=== PATIENT | male | born 1935 | race Caucasian/White ===

== ENCOUNTER 2022-10-11 06:20 | Day surgery (SDC) | payer MEDICARE, OTHER, SELFPAY ==
[2022-10-08 10:44] VITALS: BMI 30.1
[2022-10-11] VITALS (14 sets, daily range): BP systolic 105–157; BP diastolic 55–92; PULSE 57–92; RESP 10–18; TEMP 35.6–36.6; O2SAT 93–98; BMI 28.8; BMI 30.8
[2022-10-11] MEDS: PREGABALIN 75 MG CAPSULE PO (07:30)
[2022-10-11] MEDS: ACETAMINOPHEN 325 MG TABLET 975 MG PO (07:32)
[2022-10-11] MEDS: LACTATED RINGERS 1,000 ML 42 ML IV ×2 (07:33→09:00)
--- NOTE | 2022-10-11 07:37 | PM.PREOP ---
Pre-operative Note COVID-19 COVID-19 status: Negative Interval Note History & Physical reviewed/Exam performed by Physician: Yes Changes to H&P: No
--- NOTE | 2022-10-11 07:38 | P.OP_ITS ---
Operative Date/Time/Diagnoses Date of procedure: 10/11/22 Time of procedure: 08:00 Pre-op diagnosis: left hip OA Post-op diagnosis: same Procedure & Clinicians Procedure: left total hip posterior approach Same procedure as scheduled: Yes Indications: The patient has had progressively worsening left hip pain with radiographic changes consistent with arthritis. Non-operative management has failed and the patient has requested total hip replacement. The risks, benefits and alternatives to surgery were discussed with the patient prior to proceeding. Risks discussed included, but were not limited to, failure to relieve pain, leg length discrepancy, dislocation, stiffness, infection, nerve damage, deep venous thrombosis, pulmonary embolism, stroke, coma, heart attack, permanent paralysis and , as well as the potential need for eventual revision of the prosthetic. Surgeon: Charo Villatoro [employer] Supervisor: Keren Mendoza Anesthesia Type: General Operative Notes Findings: Left hip osteoarthritis, significant preoperative hip flexion and abduction contracture, soft bone Closure Type: primary Specimen(s): none sent Prosthetic devices, grafts, tissues, transplants, or devices: Villatoro and nephew Synergy standard offset size 16, R3 58 cup, neutral poly liner, one 6.5mm screw, 36 x -3 femoral head Applied: catheter Estimated Blood Loss (mL): 250 Blood products transfused: none Procedure in detail: The patient was seen in the pre-operative area, where the patient identified the left hip as the operative site and this was marked with my initials. The patient received pre-operative antibiotics and was taken to the operating room and placed on the operative table in the right lateral decubitus position after satisfactory anesthesia. A electric meter installer out was performed. The left leg was prepared from the ankle to the iliac crest with ChloroPrep in the usual fashion and draped through sterile drapes. The hip was approached through an approximately 20 cm incision centered over the greater trochanter and curving gently posteriorly as it went proximally. This was carried sharply to the fascia jamison, which was divided and retracted with a self retaining retractor. The trochanteric bursa was excised with care being taken to avoid the sciatic nerve, which was identified and protected throughout the case. The short external rotators were incised and the capsulomuscular flap was raised and tagged for later repair. The hip was dislocated, and a femoral neck osteotomy performed approximately 15 mm above the lesser trochanter. Retractors were placed around the femur. The canal was opened with a box cutting osteotome, followed by a T handled reamer and a lateralizing reamer. The canal was reamed with hand reamers, followed by sequential broaching until there was good stability of the broach in the femur. Retractors were placed to expose the acetabulum. The labrum and central soft tissues were removed. Reaming was performed initially going up in 2 mm increments, then 1 mm increments until good bite was obtained with an odd sized reamer. The cup 1 mm larger than the last reamer was then inserted using the appropriate anteversion guides. A trial neutral liner was placed. The broach was placed in the canal. A trial head and neck were then placed and the hip relocated and checked for leg length and stability. An intraoperative film confirmed the component position and no evidence of fracture. The patient was stable in the position of sleep, of squatting, and could be put through a range of motion with 45 degrees internal rotation without dislocation. At 90 degrees flexion, internal rotation to 70? was possible before dislocation. This was felt to be satisfactory and the appropriate components were opened, and the trials were removed. The cup was further stabilized with a single screw. The acetabular liner was impacted into position. The final stem was then impacted into the prepared femoral canal. A brief Betadine soak was performed while trialing with head options. The hip was meticulously irrigated with normal saline. Finally the femoral head was impacted onto the stem. The acetabulum was cleared of all material and the hip relocated one final time. The capsulomuscular flap was then repaired to the greater trochanter though an awl hole using the tag sutures. The short external rotators were repaired with a nonabsorbable suture. The fascia jamison was closed with Vicryl. The subcutaneous layer was closed with barbed sutures and surgical glue. An Aquacel Ag dressing was applied and the patient was taken to recovery having tolerated the procedure well. Complications: none Post-operative Condition: stable Disposition: Acute Care Plan for aftercare: The patient will be maintained on a standard total hip replacement protocol with weight bearing as tolerated and posterior hip precautions. The patient will receive Aspirin and sequential compression devices for DVT prophylaxis. The patient will be discharged home when safe for the home environment.
--- NOTE | 2022-10-11 08:00 | DI.RAD.S_ITS ---
PROCEDURE: XR PELVIS 1-2V INDICATIONS: L DENNIS TECHNIQUE: Intra-operative view of the pelvis and hip acquired. COMPARISON: None. FINDINGS: Bones: Intraoperative devices prior to placement of arthroplasty prostheses are in expected positions. No fractures or suspicious bony lesions. Soft tissues: Overlying surgical retractors are present, along with other intraoperative changes. IMPRESSION: Intraprocedural radiography was provided for guidance and anatomical localization. Please see the procedure report for further details. Dictated by: Farhad Green M.D. on 10/11/2022 at 16:52 Approved by: Farhad Green M.D. on 10/11/2022 at 16:54
[2022-10-11] MEDS: CLINDAMYCIN 900 MG/50 ML PIGGYBACK 50 MG IV (08:01)
[2022-10-11] MEDS: TRANEXAMIC ACID 1,000 MG VIAL 1000 MG INJ ×2 (08:15→10:00)
--- NOTE | 2022-10-11 08:47 | SUR.OPER ---
Lateral on bed, hip inspection manager system used to secure patient. head on pillow, gel axillary roll in place, bottom leg bent with gel pad under knee to foot and towel cover with tape to hold in place, upper leg straight. Upper arm supported by pillows and secured over bottom arm to padded arm board. Lower arm secured with strap, with gel pad under wrist to support.
[2022-10-11 08:54] LABS: COVID19 -Nasal RAPID Negative (Negative)
[2022-10-11] MEDS: BUPIVACAINE 0.5% W/ EPI (PF) 30 ML VIAL INJ (09:03)
[2022-10-11] MEDS: BUPIVACAINE LIPOSOME 266 MG/20 ML VIAL INJ (09:04)
--- NOTE | 2022-10-11 09:31 | SUR.OPER ---
Lateral on a bed secured by hip pediatric physiatrist system, gel axillary roll in place, bottom leg bent with gel pad under knee to foot and taped into place, upper leg straight and supported with pillows. Upper arm supported by pillows and lower arm supported by gel roll and secured over bottom arm to padded arm board. .
[2022-10-11] MEDS: SODIUM CHLORIDE IRRIG SOLUTION 250 ML, EPINEPHrine 1 MG IRR (09:48)
--- NOTE | 2022-10-11 10:30 | DI.RAD.S_ITS ---
PROCEDURE: XR HIP W PEL IF DONE LT 2V INDICATIONS: LEFT TOTAL HIP TECHNIQUE: AP pelvis and lateral view of the left hip acquired. COMPARISON: None. FINDINGS: Bones: Patient is status post left hip arthroplasty, with hardware components in expected positions. The hip joint appears congruent. The visualized bony structures appear intact. Soft tissues: Overlying postoperative changes are noted. No suspicious soft tissue densities. IMPRESSION: Expected appearance of left hip arthroplasty. Dictated by: Abi Phillips M.D. on 10/11/2022 at 15:35 Approved by: Abi Phillips M.D. on 10/11/2022 at 15:35
--- NOTE | 2022-10-11 10:48 | SUR.PHASEI ---
Report calledd, to 2086 with all belongings.
[2022-10-11] MEDS: LACTATED RINGERS 1,000 ML 125 ML IV ×2 (12:24→21:37)
[2022-10-11] MEDS: VANCOMYCIN 1,000 MG/200 ML PIGGYBACK 200 MG IV (15:46)
[2022-10-11] MEDS: OXYCODONE IR 10 MG TABLET PO ×2 (15:55→19:32)
--- NOTE | 2022-10-11 16:07 | PT.IIE ---
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 BCC (basal cell carcinoma) BPH (benign prostatic hyperplasia) CKD (chronic kidney disease) Degenerative lumbar spinal stenosis Eczema Esophageal dysmotility Essential tremor History of blood transfusion History of herpes zoster HLD (hyperlipidemia) HTN (hypertension) Idiopathic peripheral neuropathy 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 SCC (squamous cell carcinoma) Subclinical hypothyroidism Physical Therapy Inpatient Evaluation/Re-Eval M1 PT/OT-IP Prior Functional Status Start: 10/11/22 17:12 Freq: NEEDED Status: Active Protocol: Document 10/11/22 16:07 AB (Rec: 10/11/22 17:25 AB [id number]) Medical Review Prior Functional Status Medical History Reviewed Yes Communication able to make needs known Mobility and Gait pt stated that he is modified independent with all mobilities and ambulation using FWW Social History Household Members none Living Arrangements House Number of Floors (Floors) Two Floors Number of Stairs To Enter/Railing? pt stays on main level of the house has 3 steps R rail ascending and has L rail on the last step going into the house Home Environment Standard Height Toilet,High Toilet,Tub/Shower Home Equipment Front Wheel Walker,Tub Transfer Bench,Hand Held Shower,Grab Bars Near Toilet, Grab Bars In Shower Additional Social History Comment daughter stated that plan is pt to go to rehab after surgery pt has an adjustable bed M2 PT-IP Current Condition Start: 10/11/22 17:12 Freq: NEEDED Status: Active Protocol: Document 10/11/22 16:07 AB (Rec: 10/11/22 17:25 AB [id number]) Physical Therapy Current Condition Current Condition Evaluation Date 10/11/22 Treatment Diagnosis s/p L DENNIS posterior approach; difficulty in walking Onset Date 10/11/22 M3 PT-IP Subjective Start: 10/11/22 17:12 Freq: NEEDED Status: Active Protocol: Document 10/11/22 16:07 AB (Rec: 10/11/22 17:25 AB [id number]) Subjective Physical Therapy Visit Type Type Initial Evaluation Visit Start Time 16:07 Visit Stop Time 17:05 Total Visit Minutes 58 Number of LEAD PONY RIDER Visits 0 Physical Therapy Visit Comments Patient Comments agreeable to do PT Therapy Pain Assessment Pain When Pain Assessed At Rest Pain Present Pain Present Pain Reported Location Left Hip Intensity 2 Scale Used >2 with mobility Pain Management Techniques Distraction,Modification of Treatment,Re-positioning, Timing of Activity with Medications M4 PT-IP Mobility and Gait Start: 10/11/22 17:12 Freq: NEEDED Status: Active Protocol: Document 10/11/22 16:07 AB (Rec: 10/11/22 17:25 AB [id number]) PT-Bed Mobility Assessment Supine to Sit Supine to Sit Maximum Assistance,1 Person Assistance,2 Person Assistance ,Head of Bed Elevated,Bedrails Sit to Supine Sit to Supine 2 Person Assistance,Head of Bed Elevated,Bedrails Scooting Scooting to Edge of Bed Maximum Assistance PT-Transfer Assessment Sit to and From Stand Sit to and from Stand Maximum Assistance,2 Person Assistance,Use of Upper Extremities Equipment Transfer Assistive Device Gait Belt,Front Wheeled Walker Orthotic/Prosthetic Devices or Brace: No Comments Mobility Comments educated pt regarding posterior hip precautions. pt requires cues to recall. pt completed supine to sit max A x 1-2 with HOB elevated. able to sit on EOB min A. completed sit to stand max a x 2 and max cues. stooped posture and increase L knee flexion in standing. ambulated ~ 2 ft forward/ backwards using FWW mod A and sat back on EOB. c/o increase hip pain. completed sit to supine max A x 2 and max cues. positioned pt in bed. call light and table placed within reach. Gait Assessment Gait Gait Assistance Required: Moderate Assistance,1 Person Assist Distance (Feet) 4 Able to Maintain Weight Bearing Status Yes During Gait Assistive Devices Assistive Device Gait Belt,Front Wheeled Walker Orthotic/Prosthetic Devices or Brace: No Gait Deviations General Gait Pattern Decreased Stride Length, Decreased Feet Clearance, Flexed Trunk,Step-to Gait Factors Limiting Gait Function Factors Limiting Gait Function Decreased Activity Tolerance, Decreased Strength,Difficulty Following Directions,Limited Range of Motion,Pain,Poor Balance,Poor Safety Awareness PT-Balance Assessment Sitting Balance and Reactions Static Sitting Balance Ability Good Dynamic Sitting Balance Ability Fair Standing Balance and Reactions Static Standing Balance Ability Poor Dynamic Standing Balance Ability Poor Device Used FWW M5 PT-IP Objective Assessments Start: 10/11/22 17:12 Freq: NEEDED Status: Active Protocol: Document 10/11/22 16:07 AB (Rec: 10/11/22 17:25 AB [id number]) Orientation Orientation/Cognition Level of Alertness Alert Orientation Name,Place,Situation Safety Awareness Decreased Safety Awareness Memory Description Short Term Impaired,Nursing Home Impaired Gross Range of Motion Lower Extremity ROM Impairments L knee flexion contracture Strength Lower Extremity Strength Assessment Left Impaired Hip 3+/5 Knee 4-/5 Muscle Tone Muscle Tone WNL Yes M6 PT-IP Treatment Start: 10/11/22 17:12 Freq: NEEDED Status: Active Protocol: Document 10/11/22 16:07 AB (Rec: 10/11/22 17:25 AB [email or web address]) Physical Therapy Treatment Education Education Provided Precautions,Weight Bearing Status,Post-Op Packet,Safety M7 PT-IP Assessment and Plan Start: 10/11/22 17:12 Freq: NEEDED Status: Active Protocol: Document 10/11/22 16:07 AB (Rec: 10/11/22 17:25 AB [email or web address]) PT Summary Assessment and Plan Potential Rehabilitation Potential Fair Status of Condition at Evaluation Evolving Summary Impairments Pain,ROM,Strength,Balance, Coordination,Sensation,Tone, Cognition,Bed Mobility, Transfers,Gait,Activity Tolerance Assessment Summary pt requiring max A x 2 for bed mobility and sit to stand and mod A for ambulation using FWW. pt lives alone and will not have any assistance at home. pt will benefit from SNF rehab to improve overall strength and function. Goals Bed Mobility Goal Minimal Assistance Transfer Goal Minimal Assistance,Front Wheeled Walker Gait Goal Minimal Assistance,Front Wheel Walker Gait Distance 50 Other Goals improve bed mobility, transfers, ambulation using FWW SBA ~ 100 ft up/down 3 steps R rail CGA Days to Meet Goals 10 Frequency of Treatment Frequency Of Treatment Twice a Day Treatment Plan Physical Therapy Treatment Plan Bed Mobility Training,Transfer Training,Gait Training, Therapeutic Exercise,Balance Retraining,Post Op Education, Discharge Planning,Hot or Cold Pack,Neuromuscular Re-ed, Coordination Retraining,Manual Therapy Precautions Posterior Hip Precautions No Hip Flexion > 90 degrees,No Hip Internal Rotation,No Hip Adduction Weight Bearing Status Weight Bearing Status Weight Bear as Tolerated Allowed Weight Bearing Amount (enter % LLE WBAT or #) (%) Recommendations To Nursing Amount of Assist Needed 2 Person Assist Discharge Recommendations PT Discharge Recommendations SNF Rehab Transportation Needs at Discharge Wheelchair/Cabulance
[2022-10-11] MEDS: ACETAMINOPHEN 325 MG TABLET 650 MG PO (17:39)
[2022-10-11] MEDS: ASPIRIN EC 81 MG TABLET PO (21:56)
[2022-10-11] MEDS: METOPROLOL IR 50 MG TABLET PO (21:57)
[2022-10-11] MEDS: DOCUSATE 100 MG CAPSULE PO (21:57)
[2022-10-11] MEDS: TERAZOSIN 1 MG CAPSULE 4 MG PO (21:57)
[2022-10-12 01:10] VITALS: BP 109/51; PULSE 69; RESP 19; TEMP 36.2; O2SAT 92
[2022-10-12] MEDS: OXYCODONE IR 10 MG TABLET PO ×2 (01:18→09:40)
[2022-10-12] MEDS: ACETAMINOPHEN 325 MG TABLET 650 MG PO ×2 (01:19→05:37)
[2022-10-12 05:25] VITALS: BP 103/50; PULSE 69; RESP 16; TEMP 36.3; O2SAT 91
[2022-10-12] MEDS: OXYCODONE IR 5 MG TABLET PO (05:37)
[2022-10-12 06:44] LABS: Hematocrit 28.1 % (41-53); Hemoglobin 9.6 g/dL (13.5-17.5)
[2022-10-12] MEDS: DOCUSATE 100 MG CAPSULE PO (09:40)
[2022-10-12] MEDS: ASPIRIN EC 81 MG TABLET PO (09:40)
[2022-10-12 09:42] VITALS: BP 113/62; PULSE 69; RESP 16; TEMP 36.6; O2SAT 92
[2022-10-12] MEDS: METOPROLOL IR 50 MG TABLET PO (09:48)
[2022-10-12] MEDS: TAMSULOSIN 0.4 MG CAPSULE PO (09:48)
--- NOTE | 2022-10-12 10:34 | PM.DS.1 ---
History of Present Illness History of Present Illness Date Patient Seen: 10/12/22 Chief complaint: LT DENNIS Narrative: Patient is laying in bed comfortably this morning.He states his pain is well controlled with oxycodone. Patient notes that physical therapy did not go as well as he hoped. He and his daughter have decided that it is most appropriate for him to be discharged to group home facility. Looking forward to discharging to SNF today. Discharge Providers Provider Discharge Date: 10/12/22 Consults: 10/05/22 12:01 Consult to Anesthesiology Routine Comment: Consulting Provider: Anesthesiologist Reason for consultation: Surgeon requested re: Multiple medical issues 10/11/22 06:39 Consult to Anesthesiology Routine Comment: Consulting Provider: Anesthesiologist Reason for consultation: Regional block for post operative pain control 10/11/22 11:19 Consult to Discharge Planning Routine Comment: Consult to Physical Therapy Evaluate & Treat Comment: Physician Instructions: post op DENNIS protocol Discharge provider: Guillermina Trujillo PA-C Exam Vital Signs (past 8 hours): - 10/12/22 05:25 Temperature 97.4 F L Pulse Rate 69 Respiratory Rate 16 Blood Pressure 103/50 L Pulse Oximetry 91 Oxygen Flow Rate 0 Oxygen Delivery Method Room Air Oxygen Flow Rate 0 Narrative Exam Narrative: Right, alert, and oriented. Intraoperative dressing clean, dry, and intact. Strength and sensation intact bilateral lower extremities. Bilateral calves soft, compressible, nontender with no palpable cords or masses. 2+ pitting edema bilaterally, longstanding. 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 SCC (squamous cell carcinoma) Subclinical hypothyroidism Surgical History History of abdominal aortic aneurysm repair Hx of aortic aneurysm repair (~2019) Hx of bilateral cataract extraction Hx of hemorrhoidectomy Hx of tonsillectomy Hx of total adrenalectomy Social History household members: none Smoking Status: Never smoker alcohol intake: never Discharge Assessment & Plan Assessment and Plan Assessment: Patient is progressing as expected after left total hip arthroplasty Plan of Treatment: Discharge to group home facility today after cleared by physical therapy Discharge Plan Discharge Plan Patient Disposition: SNF Transfer to: [facility] certify the postop hospital group home care is medically necessary on a continuing basis for any conditions for which he/ she received care during this hospitalization.: Yes The receiving facility has agreed to accept transfer and provide medical treatment.: Yes Discharge orders & Medications Discharge Orders: Discharge (Order); Ordered 10/12/22 Ordered By: Guillermina Trujillo Prescriptions: New oxycodone 5 mg Tablet 5 mg PO Q4HR Qty: 40 0RF No Action acetaminophen 500 mg Tablet 1,000 mg PO TID terazosin 2 mg Capsule 4 mg PO BEDTIME tamsulosin 0.4 mg Capsule 0.4 mg PO DAILY metoprolol tartrate 50 mg Tablet 50 mg PO BID rosuvastatin 10 mg Tablet 10 mg PO DAILY trospium 20 mg Tablet 20 mg PO BID Rx Instructions: administer on an empty stomach aspirin 81 mg Capsule 81 mg PO DAILY Follow up/Referrals: Charo Villatoro MD [Physician] - As previously scheduled Diet/Activity/Treatments Diet: Diet as Tolerated Activity: Up and walking with physical therapy as tolerated Skin/Wound/Dressing Care Report to your healthcare provider any signs of infection, such as:: chills, fever, night sweats, increased pain, unusual drainage and unusual redness Dressing: Keep dressing clean, dry, and intact until 2 week follow up with orhtopedics. If it gets wet, change dressing at SNF or call our office for nurse visit to change dressing. [facility] Services Reason for rehabilitation: Post-operative therapy Rehab type: Physical therapy Restrictions to mobility: posterior hip precautions Visit Report/Discharge Packet Instructions: DI for Hip Replacement Stand Alone Forms: Surgery Discharge Discharge Data Attending Provider: Charo Villatoro Quality VTE Deep Vein Thrombosis/Pulmonary Embolism Present on Admission: No
--- NOTE | 2022-10-12 12:12 | PC.NURSE ---
Day shift: Per conversation with DAVID Trujillo this AM it is OK for Jhaveri to stay in place at this time. Due to Pt's mobility and pain with movement. Jhaveri will stay in place when Pt transfers to SNF today.
--- NOTE | 2022-10-12 12:32 | PC.NURSE ---
Day shift: Report given to Ivan ARGUETA at [facility].
--- NOTE | 2022-10-12 12:52 | PC.NURSE ---
Day shift: Pt with significant issues when standing upon transfer to for transport to SNF. 2PPL max assist. Pt was not able to stand without help from staff. He did tolerate the transfer to with minimal pain. Jhaveri remains in place and dressing is CDI. Left unit at approx 1255 via with transport person. Pt has all personal belongings and SNF packet given to transport person.
--- NOTE | 2022-10-12 13:34 | CM.DANOTE ---
Discharge Planning/Care Management CM Discharge Assessment Start: 10/12/22 13:25 Freq: Status: Active Protocol: Document 10/12/22 13:25 CHYNA (Rec: 10/12/22 13:34 CHYNA [id number]) Discharge Planning Assessment Assigned Toy Mechanic ATILIO Shook DPOA/Assigned Designee Name Antonieta vineet Fernandez Contact Information [phone] Advance Directives? Yes Advance Directives on File No History Provided By Patient,Family Member,Medical Record Prior Living Arrangements House Household Members none Type of transporation used prior to Relies on Others admit Independent with ADL's Yes: Modified Indp w/ FWW Is patient alert and oriented? Yes Needs Assistance With Meal Prep,Home Chores / Shopping Patient/Family Preference Prison Facility Barriers to Discharge Yes Comment Patient is s/p DENNIS, lives alone and is requesting discharge to [facility]. Dtr Antonieta is supportive but unable to provide assist consistently. Referral sent to [facility] yesterday POD [address] Villatoro's request. Carolina at [facility] accepted patient for admission today using the COVID waiver. Patient and dtr updated and agreeable to plan : DC to [facility] today using COVID waiver to waive [facility]'s inpatient 3 midnight rule. DAVID Trujillo completed DC ppk and Akila WILLIAMSON assisted in this coordination. p/u via J+B was at 1300 Discharge Plan Prison Facility Referrals Initiated Prison Medicare Choice List Provided No SNF/HH Preference Patient wanted [facility] Has Agency SNF been contacted Yes Whiteboard Updated in Patient Room with Yes name and ext. # of Toy Mechanic
== END 2022-10-12 12:56 ==
LOC: OR 06:26 → AC 06:27
PROVIDERS: Referring Provider Physical Medicine & Rehabilitation Pain Medicine; Visit Provider Orthopaedic Surgery
PROC: 0SRB0JZ Replacement of Left Hip Joint with Synthetic Substitute, Open Approach (ICD-10-PCS; CPT 27130; principal; 2022-10-11 07:45)
DX: M16.12 Unilateral primary osteoarthritis, left hip (principal); M24.552 Contracture, left hip; I10 Essential (primary) hypertension
CPT/HCPCS: 27130; 36415; 72170; 73502; 85014; 85018; 87635; 93005; 93010; 97162; 97530; C1776; C9803; C9290; J0171; J2250; J3010